=== PATIENT | female | born 1975 | race Caucasian/White ===

== ENCOUNTER → 2016-11-14 | Outpatient (CLI) | payer BC ==
[~2016-11-14] MED LIST: COPAXONE SQ; LRT5 PO; MTRUNK PO
== END | disposition home or self-care (01) ==
LOC: C.LAB1850 13:42
PROVIDERS: ATTEND Podiatrist
DX: B35.1 Tinea unguium (principal)

== ENCOUNTER → 2016-11-14 | Outpatient (CLI) | payer BC | END | disposition home or self-care (01) | LOC: C.LABSPEC 15:27 | PROVIDERS: ATTEND Podiatrist | DX: B35.1 Tinea unguium (principal) ==